=== PATIENT | male | born 2000 | race American Indian/Alaskan Native ===

== ENCOUNTER 2020-05-14 03:03 | Emergency (ER) | payer SELFPAY ==
[2020-05-14 03:15] VITALS: BP 134/79
--- NOTE | 2020-05-14 09:20 | Emergency Department Report ---
Chief Complaint: Urogenital-Male Stated Complaint: PAIN IN GROIN Time Seen by Provider: 05/14/20 09:16 - HPI History of Present Illness: 20-year-old -[place] male presents to the emergency room for a pimple- like lesion on his scrotum that is painless. Patient states he noticed it a day or 2 and it had popped and he had 7 cloudy discharge from the lesion. Patient denies any pain. Reports he has not had any intercourse but with 1 person 2 years ago. Patient denies any penile discharge no fever no abdominal pain no chills. - Exam Vital Signs: Vital Signs 05/14/20 03:13 Temperature 98.3 F Pulse Rate 72 Respiratory 18 Rate Blood Pressure 134/79 O2 Sat by Pulse 100 Oximetry Physical Exam: Alert and oriented x3 no acute distress nontoxic in appearance Scrotum has a pimple-like structure that is has just a very little sero- sanguinous discharge nonerythematous no tenderness no edema. Ambulatory without difficulties MSE screening note: Focused history and physical exam performed. Due to findings the following was ordered: 20-year-old -[place] male presents to the emergency room for a pimple- like lesion on his scrotum that is painless. Patient states he noticed it a day or 2 and it had popped and he had 7 cloudy discharge from the lesion. Patient denies any pain. Reports he has not had any intercourse but with 1 person 2 years ago. Patient denies any penile discharge no fever no abdominal pain no chills. Recommend patient to keep the wound clean and dry he can put some [id number] triple antibiotic. Follow-up with a primary care provider [facility]. ED Disposition for MSE Disposition: Z MED SCREENING EXAM-LEFT Is pt being admited?: No Does the pt Need Aspirin: No Condition: Stable Additional Instructions: Keep wound clean and dry. Follow-up at the health department or primary care department. Referrals: PRIMARY CARE [Primary Care Provider] - 3-5 Days [facility] [Outside] - 3-5 Days
== END 2020-05-14 09:32 | disposition left against medical advice (07) ==
LOC: ED 03:03
DX: R10.9 Unspecified abdominal pain (principal); Z53.21 Procedure and treatment not carried out due to patient leaving prior to being seen by health care provider